=== PATIENT | male | born 1955 | race Caucasian/White ===

== ENCOUNTER 2024-12-27 23:43 | Emergency (ER) | payer OTHER ==
--- OUTSIDE RECORDS SUMMARY | 2024-12-27 23:47 | XMS REPORT | Continuity of Care Document ---
Author Name Unknown Address [address] [facility] [place] [address] [facility] Address [address] [facility] [address] [place] [address] Care Team Providers Care Audio Production Instructor Name Role Phone David Rain Primary Care Physician [phone] Carla Rain Attending Clinician Unavailable Brady Camargo Attending Clinician UnavailRuby العراقي MD Attending Clinician [phone] EZ COLÓN Attending Clinician Unavailable LASHAWN SCOTT Attending Clinician Unavailab Martine Bates LCSW Attending Clinician Unavail able Lesvia Attending Clinician Unavail able STEVE Attending Clinician Unavailable Physician, No Primary or Family Admitting Clinic selina Unavailable Lesvia Admitting Clinician Unavail able STEVE Admitting Clinician Unavailable Payers Payer Name Policy Type Policy Number Effective Date Expirati on Date Source AETNA MEDICARE PPO [id number] 2022 00:00:00 AETNA MEDICARE PPO 53 [id number] [facility] AETNA 53 [id number] 2002 00:00:00 [facility] AETNA (MEDICARE REPLACEMENT PPO) [id number] 2022 00:00:00 AETNA 53 [id number] [facility] Problems Condition Name Condition Details Condition Category Status Onset Date Resolution Date Last Treatment Date Treating Clinician Comments Source Degenerati on of cervical interverte bral disc Degenerati on of Cervical Interverte bral Disc Problem Active 11-09 00:00: 00 [facility] 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 Cervical Spondylosi s without Myelopathy Problem Active 11-09 00:00: 00 [facility] Lumbar spondylosi s Lumbar Spondylosi s Problem Active 10-20 00:00: 00 [facility] Spondyloli sthesis Spondyloli sthesis Problem Active 2019-08 00:00: 00 [facility] Degenerati on of lumbar interverte bral disc Degenerati on of Lumbar Interverte bral Disc Problem Active 2017-08 00:00: 00 [facility] Lumbar disc prolapse with radiculopa thy Lumbar Disc Prolapse with Radiculopa thy Problem Active 2017-08 00:00: 00 [facility] [id number] Elevated PSA Problem [facility] [id number] Family history of prostate cancer Problem [facility] Allergies, Adverse Reactions, Alerts Allergy Name Allergy Type Status Severity Reaction(s) Onset Date Inactive Date Treating Clinician Comments Source No Known Allergie s DA Active U 02-17 00:00: 00 [facility] No Known Allergie s DA Active U 02-17 00:00: 00 [facility] No Known Allergie s DA Active U 02-16 00:00: 00 [facility] No Known Allergie s DA Active U 2017-08 00:00: 00 [facility] Social History Social Habit Start Date Stop Date Quantity Comments Source History of tobacco use Snuff User [facility] Sexual orientation [facility] Alcohol intake 2023-02-27 00:00:00 2023-02-27 00:00:00 .29 /d [facility] Tobacco use and exposure 2023-02-21 00:00:00 2023-02-21 00:00:00 User of smokeless tobacco [facility] History of Social function 2023-02-19 00:00:00 2023-02-19 00:00:00 [facility] Exposure to SARS-CoV-2 (event) 2022 00:00:00 2022-11-19 11:51:00 Not sure [facility] Sex Assigned At 1955 00:00:00 1955 00:00:00 [facility] Smoking Status Start Date Stop Date Source Never smoked tobacco [facility] Tobacco smoking consumption unknown [facility] Medications Ordered Medication Name Filled Medication Name Start Date Stop Date Current Medication? Ordering Clinician Indication Dosage Frequency Signature (SIG) Comments Components Source hydrALAZINE (Apresoline ) 50 MG tablet 02-21 09:07: 00 Yes 50mg Q.5D Take 50 mg by mouth in the morning and 50 mg before bedtime. [facility] lisinopril 30 MG tablet 02-19 14:36: 44 Yes 30mg Q.5D Take 30 mg by mouth in the morning and 30 mg before bedtime. [facility] rosuvastati n (Crestor) 10 MG tablet 02-19 14:36: 44 Yes 10mg QD Take 10 mg by mouth 1 (one) time each day. [facility] amLODIPine (Norvasc) 10 MG tablet - 00:00: 00 Yes [facility] CEFAZOLIN SODIUM 500 MG CEFAZOLIN SODIUM 500 MG 2- 00:00: 00 No 1g [facility] CEFAZOLIN SODIUM 500 MG CEFAZOLIN SODIUM 500 MG 2- 00:00: 00 No 1g [facility] CEFAZOLIN SODIUM 500 MG CEFAZOLIN SODIUM 500 MG 2- 00:00: 00 No 1g [facility] gabapentin 300 mg capsule gabapentin 300 mg capsule 09-20 00:00: 00 No gabapentin 300 mg capsule [facility] ibuprofen 200 mg capsule ibuprofen 200 mg capsule 2017-08 00:00: 00 No ibuprofen 200 mg capsule [facility] lisinopril 20 mg tablet lisinopril 20 mg tablet 2017-08 00:00: 00 No lisinopril 20 mg tablet [facility] Lisinopril 30 MG Lisinopril 30 MG No 1{table t} QD Lisinopril 30 MG Crestor 10 MG Crestor 10 MG No 1{table t} QD Crestor 10 MG hydrALAZINE HCl 50 MG hydrALAZINE HCl 50 MG No 1{table t_with_ food} BID hydrALAZIN E HCl 50 MG Lisinopril 30 MG Lisinopril 30 MG No 1{table t} QD Lisinopril 30 MG Crestor 10 MG Crestor 10 MG No 1{table t} QD Crestor 10 MG hydrALAZINE HCl 50 MG hydrALAZINE HCl 50 MG No 1{table t_with_ food} BID hydrALAZIN E HCl 50 MG Lisinopril 30 MG Lisinopril 30 MG No 1{table t} QD Lisinopril 30 MG Crestor 10 MG Crestor 10 MG No 1{table t} QD Crestor 10 MG hydrALAZINE HCl 50 MG hydrALAZINE HCl 50 MG No 1{table t_with_ food} BID hydrALAZIN E HCl 50 MG Crestor 10 MG Crestor 10 MG No 1{table t} QD Crestor 10 MG hydrALAZINE HCl 50 MG hydrALAZINE HCl 50 MG No 1{table t_with_ food} BID hydrALAZIN E HCl 50 MG Lisinopril 30 MG Lisinopril 30 MG No 1{table t} QD Lisinopril 30 MG Lisinopril 30 MG Lisinopril 30 MG No 1{table t} QD Lisinopril 30 MG Crestor 10 MG Crestor 10 MG No 1{table t} QD Crestor 10 MG hydrALAZINE HCl 50 MG hydrALAZINE HCl 50 MG No 1{table t_with_ food} BID hydrALAZIN E HCl 50 MG Lisinopril 30 MG Lisinopril 30 MG No 1{table t} QD Lisinopril 30 MG Crestor 10 MG Crestor 10 MG No 1{table t} QD Crestor 10 MG hydrALAZINE HCl 50 MG hydrALAZINE HCl 50 MG No 1{table t_with_ food} BID hydrALAZIN E HCl 50 MG Vital Signs Vital Name Observation Time Observation Value Comments S ource Systolic blood pressure 2023-02-25 17:25:00 111 mm[Hg] [facility] Diastolic blood pressure 2023-02-25 17:25:00 75 mm[Hg] [facility] Heart rate 2023-02-25 17:25:00 65 /min [facility] Systolic blood pressure 2022-11-19 22:06:00 120 mm[Hg] [facility] Diastolic blood pressure 2022-11-19 22:06:00 75 mm[Hg] [facility] Heart rate 2022-11-19 22:06:00 68 /min [facility] Body height 2022-11-19 22:06:00 [facility]2 [facility] Body weight 2022-11-19 22:06:00 63.504 [facility] BMI 2022-11-19 22:06:00 21.93 kg/m2 [facility] BP Diastolic 2022-10-03 00:00:00 80 mm[Hg] [facility] Height 2022-10-03 00:00:00 67 [in_i] [facility] BMI (Body Mass Index) 2022-10-03 00:00:00 22.7 kg/m2 [facility] BP Systolic 2022-10-03 00:00:00 110 mm[Hg] [facility] Body Weight 2022-10-03 00:00:00 145 [lb_av] [facility] height 2022-09-26 10:30:00 67 [in_i] Commo n [facility] weight 2022-09-26 10:30:00 151.4 [lb_av] Co mmon [facility] temperature 2022-09-26 10:30:00 98.1 [degF] Com mon [facility] bmi 2022-09-26 10:30:00 23.71 kg/m2 Comm on [facility] oximetry 2022-09-26 10:30:00 98 % Commo n [facility] respiratory rate 2022-09-26 10:30:00 18 /min [facility] blood pressure systolic 2022-09-26 10:30:00 140 mm[Hg] [facility] blood pressure diastolic 2022-09-26 10:30:00 89 mm[Hg] [facility] height 2022-06-28 09:15:00 67 [in_i] Commo n [facility] weight 2022-06-28 09:15:00 147.4 [lb_av] Co [facility] temperature 2022-06-28 09:15:00 98.4 [degF] Com [facility] bmi 2022-06-28 09:15:00 23.08 kg/m2 Comm on [facility] oximetry 2022-06-28 09:15:00 96 % Commo n [facility] respiratory rate 2022-06-28 09:15:00 18 /min [facility] blood pressure systolic 2022-06-28 09:15:00 129 mm[Hg] [facility] blood pressure diastolic 2022-06-28 09:15:00 70 mm[Hg] [facility] height 2021-12-27 10:00:00 67 [in_i] Commo n [facility] weight 2021-12-27 10:00:00 149.8 [lb_av] Co [facility] temperature 2021-12-27 10:00:00 98.6 [degF] Com [facility] bmi 2021-12-27 10:00:00 23.46 kg/m2 Comm on [facility] oximetry 2021-12-27 10:00:00 96 % Commo n [facility] respiratory rate 2021-12-27 10:00:00 16 /min Common [facility] blood pressure systolic 2021-12-27 10:00:00 174 mm[Hg] [facility] blood pressure diastolic 2021-12-27 10:00:00 88 mm[Hg] [facility] height 2021-09-20 16:30:00 67 [in_i] Commo n [facility] weight 2021-09-20 16:30:00 145 [lb_av] Comm on [facility] temperature 2021-09-20 16:30:00 97.6 [degF] Com [facility] bmi 2021-09-20 16:30:00 22.71 kg/m2 Comm on [facility] oximetry 2021-09-20 16:30:00 99 % Commo n [facility] respiratory rate 2021-09-20 16:30:00 16 /min [facility] blood pressure systolic 2021-09-20 16:30:00 161 mm[Hg] Common [facility] blood pressure diastolic 2021-09-20 16:30:00 101 mm[Hg] Common [facility] height 2021-08-09 08:40:00 67 [in_i] Commo n [facility] weight 2021-08-09 08:40:00 151.0 [lb_av] Co mmon [facility] temperature 2021-08-09 08:40:00 98.0 [degF] Com mon [facility] bmi 2021-08-09 08:40:00 23.65 kg/m2 Comm on [facility] oximetry 2021-08-09 08:40:00 96 % Commo n [facility] blood pressure systolic 2021-08-09 08:40:00 161 mm[Hg] Common [facility] blood pressure diastolic 2021-08-09 08:40:00 92 mm[Hg] Common [facility] Plan of Care Planned Activity Planned Date Details Comments Source Instructions [facility] Encounters Start Date/Time End Date/Time Encounter Type Admission Type Attending Clinicians Care Facility Care Department Encounter ID Source 2023-02-28 14:06:30 Outpatient [facility] [id number] [facility] 2023-02-13 11:36:07 Outpatient [facility] [id number] [facility] 2022-12-19 09:18:38 Outpatient [facility] [id number] [facility] 2022-11-23 06:28:17 Outpatient [facility] [id number] [facility] 2022-11-22 21:53:25 Outpatient [facility] [id number] [facility] 2022-11-20 11:05:33 Outpatient [facility] [id number] [facility] 2022-11-19 10:52:31 Outpatient [facility] [id number] [facility] 2022-11-16 16:29:00 Outpatient [facility] [id number] [facility] 2022-11-15 10:16:42 Outpatient [facility] [id number] [facility] 2022-09-25 11:50:01 Outpatient Carla Rain [facility] [id number] [facility] 2022-06-26 11:25:03 Outpatient RainCarla [facility] [id number] [facility] 2021-12-19 11:30:03 Outpatient RainCarla [facility] [id number] [facility] 2021-09-20 14:39:55 Outpatient RainCarla [facility] [id number] [facility] 2021-09-20 14:24:58 Outpatient [facility] [id number] [facility] 2020-10-20 10:00:00 Inpatient Brady Pedro [facility] [id number] [facility] 2023-12-09 09:30:00 2023-12-09 10:21:58 Outpatient [facility] [id number] [facility] 2023-05-17 09:00:00 2023-05-17 15:01:45 Office Visit Ruby Dumas [facility]TP [address] [facility] [id number] [id number] [facility] 2023-05-13 09:00:00 2023-05-13 09:00:00 Outpatient [facility] [id number] [facility] 2023-03-18 00:00:00 2023-03-18 00:00:00 (TEL) [facility] [id number] [facility] 2023-02-25 09:00:00 2023-02-25 09:00:00 Telemedici ne EZ COLÓN [facility] [id number]..840.114 [id number] [facility] 2023-02-11 09:00:00 2023-02-11 09:00:00 Outpatient EZ COLÓN [facility] [id number] [facility] 2023-02-06 09:00:00 2023-02-06 09:00:00 Outpatient EZ COLÓN [facility] [id number] [facility] 2022-12-24 14:00:00 2022-12-24 14:00:00 Outpatient GEORGEKAMERONWilbert KTPRADEEPTOSHIACynthia [facility] [id number] [facility] 2022-11-19 17:00:00 2022-11-19 17:19:39 Telemedici ne Ez Colón [facility] 3 [id number]..840.114 [id number] [facility] 2022-11-19 00:00:00 2022-11-19 00:00:00 Patient Outreach Martine Grossman Latonya [facility] [id number] [facility] [id number] [facility] 2022-11-13 00:00:00 2022-11-13 00:00:00 (TEL) [facility] [id number] [facility] 2022-10-19 00:00:00 2022-10-19 00:00:00 Outpatient FOG_Michelle Ferguson AO AO [id number] [facility] 2022-10-03 00:00:00 2022-10-03 00:00:00 Outpatient FOG_Michelle Ferguson AO AO [id number] [facility] 2022-10-03 00:00:00 2022-10-03 00:00:00 Brady Camargo MD: [address] [place] [address] , Ph. [phone] [facility] [place] [facility] [place] [facility] [id number] [facility] 2022-09-26 00:00:00 2022-09-26 00:00:00 OFFICE VISIT ESTAB PT LEVEL 2 [facility] [id number] [facility] 2022-08-13 00:00:00 2022-08-13 00:00:00 Outpatient FOG_Michelle Ferguson AO AO [id number] [facility] 2022-08-13 00:00:00 2022-08-13 00:00:00 Outpatient FOG_Michelle Ferguson AO AO [id number] [facility] 2022-07-12 00:00:00 2022-07-12 00:00:00 Outpatient SCHAUBROECK _L [facility] [id number] [facility] 2022-06-28 00:00:00 2022-06-28 00:00:00 OFFICE VISIT ESTAB PT LEVEL 4 [facility] [id number] [facility] 2022-01-01 10:54:00 2022-01-01 10:54:00 Outpatient SCHAUBROECK _L [facility] [id number] 2021-12-27 00:00:00 2021-12-27 00:00:00 OFFICE VISIT ESTAB PT LEVEL 2 [facility] [id number] [facility] 2021-12-13 00:00:00 2021-12-13 00:00:00 ([place]) Nurse Visit [facility]LMLC [facility] [id number] [facility] 2021-09-20 00:00:00 2021-09-20 00:00:00 OFFICE VISIT EST PT LEVEL 3 [facility] [id number] [facility] 2021-08-09 00:00:00 2021-08-09 00:00:00 OFFICE VISIT NEW PT LEVEL 3 [facility] [id number] [facility] Results Test Description Test Time Test Comments Results Resul t Comments Source - XR FLUORO FOR SPINE INJ 2020-10-20 20:13:00 [facility] : 1955 Sex: M Patient Name: BRADY MEMBRENO Unit No: [id number] EXAMS: CPT CODE: [id number] XR FLUORO FOR SPINE INJ 71803 LUMBAR FACET INJECTION DIAGNOSTIC REFERRAL PHYSICIAN: None PREOPERATIVE DIAGNOSIS: Lumbar spondylosis without myelopathy or radiculopathy POSTOPERATIVE DIAGNOSIS: Lumbar spondylosis without myelopathy or radiculopathy PROCEDURE PERFORMED: Fluoroscopically guided needle localization of the bilateral L4-5 facets with arthrograms and diagnostic injection of local anesthetic and steroid. FINDINGS: The bilateral L4-5 facet showed marked capsular degeneration and mild joint hypertrophy. Provocation with injection was negative. Aspiration was positive bilaterally for 0.2-0.3 mL of clear serous fluid. Anesthetic response was positive with the patient noting complete relief of his low back pain. Preinjection VAS 7/10. Postinjection VAS 0/10. Steroid response pending follow-up. ESTIMATED BLOOD LOSS: Minimal ANESTHESIA: TIVA COMPLICATIONS: None DETAILS OF PROCEDURE: After obtaining stable vital signs, informed consent and IV access patient was taken to the fluoroscopy suite where the patient was placed in a prone position with all extremities padded and appropriate monitors placed. The patient was sterilely prepped prepped and draped over the lumbosacral spine. Using fluoroscopic visualization, the insertion sites were marked for a paravertebral approach to each joint. Using standard technique, a 26 -gauge needle was inserted into each joint capsule without paresthesias. Bilaterally, aspiration was positive for clear serous fluid. Isovue-300 contrast 0.2 mL was injected to produce each arthrogram. There were no signs of intravascular or intrathecal uptake. Bupivicaine 0.75% 0.5 mL with Lidocaine 4% 0.25 ml and triamcinolone 16 mg was then injected incrementally into each joint. There were no signs of intravascular or intrathecal uptake. The patient's vital signs remained stable. All needles were removed and the patient was taken to the PACU in good condition. Image: Image 1 Image: Image 2 at 2013 Reported and signed by: Brady Camargo M.D. [facility] NAME: SUNDAYBRADY [address] [facility] PHYS: Brady Florez MD [place], [place] [address] : 1955 AGE: 64 SEX: M LOC: YJuventinoMELVIN PHONE #: [phone] EXAM DATE: 10/20/2020 STATUS: [facility] FAX #: [phone] RAD #: D/C DT PAGE 1 Signed Report (CONTINUED) Patient Name: BRADY MEMBRENO Unit No: [id number] EXAMS: CPT CODE: [id number] XR FLUORO FOR SPINE INJ 22099 (Continued) CC: Technologist: Kelsie Caldera(R) Transcribed D/ (2012) [facility] [place] NAME: BRADY MEMBRENO [address] [facility] PHYS: Brady Florez MD [place] [address] : 1955 AGE: 64 SEX: M LOC: Y.MELVIN PHONE #: [phone] EXAM DATE: 10/20/2020 STATUS: [facility] FAX #: [phone] RAD #: D/C DT PAGE 2 Signed Report Patient Name: BRADY MEMBRENO Unit No: [id number] EXAMS: CPT CODE: [id number] XR FLUORO FOR SPINE INJ 68738 (Continued) Orig Print D/T: S: 10/20/2020 (2015) [facility] NAME: BRADY MEMBRENO [address] [facility] PHYS: Brady Florez MD [place] [address] : 1955 AGE: 64 SEX: M LOC: Y.MELVIN PHONE #: [phone] EXAM DATE: 10/20/2020 STATUS: [facility] FAX #: [phone] RAD #: D/C DT PAGE 3 Signed Report - XR FLUORO FOR SPINE INJ 2019-02-17 13:17:00 Patient Name: BRADY MEMBRENO Unit No: [id number] EXAMS: CPT CODE: [id number] XR FLUORO FOR SPINE INJ 74129 LUMBAR TRANSFORAMINAL INJECTION REFERRING PHYSICIAN: PREOPERATIVE DIAGNOSIS: Degenerative Lumbar Disc Disease. POSTOPERATIVE DIAGNOSIS: Bilateral lumbar radiculopathy PROCEDURES PERFORMED 1. Fluoroscopically guided needle localization of the bilateral L4, bilateral L5, bilateral S1 spinal nerve/nerves with transforaminal epidural steroid injection/injections. 2. Transforaminal epidurogram/epidurogram s at bilateral L4, bilateral L5, bilateral S1. FINDINGS: Poor filling all. Concordant provocation bilateral L5 hips. Pain relief-100%. ANTIBIOTIC: Cefazolin ESTIMATED BLOOD LOSS: Minimal ANESTHESIA: (TIVA )Total intravenous anesthetic (patient intolerant to sedatives and hypnotics) COMPLICATIONS: None DETAILS OF PROCEDURE: After obtaining stable vital signs, informed consent and IV access, with no known contraindications to proceeding, the patient was taken to the fluoroscopy suite and placed in a prone position with all extremities padded and appropriate monitors placed. A sterile prep and drape was performed over the lumbosacral spine. Using fluoroscopic visualization at each level the insertion site was marked for a paravertebral approach to the foramen. Using standard technique, a 25 gauge needle was advanced to the base of the pedicle. In AP view, final positioning was obtained outside the 6 on the clock position on the pedicle. Then, 1 ml of Isovue-300 contrast was injected to produce the epidurograms. No paresthesias were elicited with needle insertion or injection and there were no signs of intravascular or intrathecal uptake. Then, with 1 ml of 4% lidocaine and 10 mg of triamcinolone was injected incrementally with frequent negative aspirations. There were no signs of intravascular or intrathecal uptake. Each subsequent level was done using the same technique and medications. The patient's vital signs remained stable. The patient was taken to the PACU in good condition. at 1317 Reported and signed by: Reginaldo Chua M.D. [facility] NAME: BRADY MEMBRENO [address] [facility] PHYS: DOCUD - Reginaldo Chua MD [place], [place] [address] : 1955 AGE: 63 SEX: M LOC: SHANNA PHONE #: [phone] EXAM DATE: 02/17/2019 STATUS: [facility] FAX #: [phone] RAD #: D/C DT PAGE 1 Signed Report (CONTINUED) Patient Name: BRADY MEMBRENO Unit No: [id number] EXAMS: CPT CODE: [id number] XR FLUORO FOR SPINE INJ 96133 (Continued) CC: Reginaldo Chua MD Technologist: RUSSEL SLOAN RT(R) Transcribed D/ (1317) tJUAND [facility] NAME: BRADY MEMBRENO [address] [facility] PHYS: Reginaldo Jimenez MD [place], [place] [address] : 1955 AGE: 63 SEX: M LOC: SHANNA PHONE #: [phone] EXAM DATE: 02/17/2019 STATUS: [facility] FAX #: [phone] RAD #: D/C DT PAGE 2 Signed Report Patient Name: BRADY MEMBRENO Unit No: [id number] EXAMS: CPT CODE: [id number] XR FLUORO FOR SPINE INJ 39408 (Continued) Orig Print D/T: S: 02/17/2019 (1320) [facility] NAME: BRADY MEMBRENO [address] [facility] PHYS: Reginaldo Jimenez MD [place], [place] [address] : 1955 AGE: 63 SEX: M LOC: SHANNA PHONE #: [phone] EXAM DATE: 02/17/2019 STATUS: [facility] FAX #: [phone] RAD #: D/C DT PAGE 3 Signed Report
[2024-12-28] MEDS ORDERED: dexAMETHasone 10 MG/ML VIAL ONE (00:07)
[2024-12-28] MEDS ORDERED: METOCLOPRAMIDE 10 MG/2mL INJ ONE (00:07)
[2024-12-28] MEDS ORDERED: DIPHENHYDRAMINE 50 MG/ML VIAL ONE (00:07)
[2024-12-28] MEDS ORDERED: NA CHLORIDE 0.9% 1,000 ML ONE (00:08)
--- NOTE | 2024-12-28 01:09 | RAD REPORT ---
EXAM: CT Head Without Intravenous Contrast CLINICAL HISTORY: The patient is 69 years old and is Male; HEADACHE TECHNIQUE: Axial computed tomography images of the head/brain without intravenous contrast. Sagit padmini and coronal reformatted images were created and reviewed. This CT exam was performed using one or more of the following dose reduction techniques: automated exposure control, adjustment of t he mA and/or kV according to patient size, and/or use of iterative reconstruction technique. COMPARISON: No relevant prior studies available. FINDINGS: Brain: Mild nonspecific white matter changes likely related to chronic microvascular ischemic dis ease. No hemorrhage. Ventricles: Unremarkable. No ventriculomegaly. Bones/joints: Unremarkable. No acute fracture. Soft tissues: Unremarkable. Sinuses: Unremarkable as visualized. Mastoid air cells: Unremarkable as visualized. No mastoid effusion. IMPRESSION: No acute intracranial abnormality. Electronically signed by: Jose Bartholomew MD 12/28/2024 01:04 AM CDT RP 8 Due to temporary technical issues with the PACS/[employer] reporting system, reports are being santo d by the in-house radiologist without review as a courtesy to ensure prompt reporting the interpreting radiologist is fully responsible for the content of the report. Transcribed Date/Time: 12/28/2024 1:09 AM
--- NOTE | 2024-12-28 01:35 | ER ---
Nurse's Notes [facility] Name: Jose Palacios Age: 69 yrs Sex: Male : 1955 Arrival Date: 12/27/2024 Time: 23:43 Bed 7 Private MD: Diagnosis: Headache Presentation: 12/27 23:50 Chief complaint: Patient states: right sided neck pain radiating to right side of face lg3 and right head. onset 1999. Coronavirus screen: Client denies travel out of the [place] in the last 14 days. At this time, the client does not indicate any symptoms associated with coronavirus-19. Ebola Screen: No symptoms or risks identified at this time. Initial Sepsis Screen: Does the patient meet any 2 criteria? No. Patient's initial sepsis screen is negative. Does the patient have a suspected source of infection? No. Patient's initial sepsis screen is negative. Risk Assessment: Do you want to hurt yourself or someone else? Patient reports no desire to harm self or others. Onset of symptoms was December 27, 2024 at 20:00. 23:50 Method Of Arrival: EMS: [facility] lg3 23:50 Acuity: [place] 3 lg3 Triage Assessment: 23:50 General: Appears in no apparent distress. comfortable, Behavior is calm, cooperative. lg3 Pain: Complains of pain in head and neck. EENT: No deficits noted. No signs and/or symptoms were reported regarding the EENT system. Neuro: No deficits noted. Lao Agitation-Sedation Scale (RASS): 0 - Alert and Calm Level of Consciousness is awake, alert, obeys commands, Oriented to person, place, time, situation. Neuro: Retinal Surgeon are equal bilaterally Moves all extremities. Full function Gait is steady, Facial symmetry appears normal, Pupils are PERRLA, Intact Reports headache in right parietal area. Cardiovascular: No deficits noted. Denies chest pain, shortness of breath, Capillary refill < 3 seconds Clubbing of nail beds is absent JVD is absent Patient's skin is warm and dry. Respiratory: No deficits noted. Airway is patent Respiratory effort is even, unlabored, Respiratory pattern is regular, symmetrical. GI: No deficits noted. No signs and/or symptoms were reported involving the gastrointestinal system. : No signs and/or symptoms were reported regarding the genitourinary system. Derm: No deficits noted. No signs and/or symptoms reported regarding the dermatologic system. Skin is intact, is healthy with good turgor, Skin is dry, Skin is normal, Skin temperature is warm. Musculoskeletal: No deficits noted. Circulation, motion, and sensation intact. Range of motion: intact in all extremities. Historical: - Allergies: 12/28 00:23 No Known Allergies; lg3 - Home Meds: 00:23 lisinopril 30 mg Oral tablet 1 tab twice a day [Active]; rosuvastatin 10 mg oral tablet lg3 daily [Active]; amlodipine 10 mg tablet daily [Active]; - PMHx: 00:23 hemorrhagic stroke 2022; Hypertensive disorder; Hypercholesterolemia; spinal stenosis; lg3 aphasia; - PSHx: 00:23 None; lg3 - Immunization history:: Adult Immunizations up to date. - Infectious Disease History:: Denies. - Social history:: Smoking status: Patient denies any tobacco usage or history of. Patient uses alcohol, occasionally. - Family history:: not pertinent. Screenin/04 23:50 [facility] ED Fall Risk Assessment (Adult) History of falling in the last 3 months, lg3 including since admission No falls in past 3 months (0 pts) Confusion or Disorientation No (0 pts) Intoxicated or Sedated No (0 pts) Impaired Gait No (0 pts) Mobility Assist Device Used No (0 pt) Altered Elimination No (0 pt) Score/Fall Risk Level 0 - 2 = Low Risk Oriented to surroundings, Maintained a safe environment, Educated pt \T\ family on fall prevention, incl call for assistance when getting out of bed, Assessed \T\ reinforced patient's understanding of fall precautions. Abuse screen: Denies threats or abuse. Denies injuries from another. Nutritional screening: No deficits noted. Tuberculosis screening: No symptoms or risk factors identified. VAN Screening: Arm Drift: Patient shows no arm weakness. Patient is VAN negative. Visual Disturbance: No visual disturbance noted. Ronda Swallow Protocol Brief Cognitive Screen What is your name? Normal, Where are you right now? Normal, What year is it? Normal. Oral Mechanism Examination Facial Symmetry: Normal, Motion: Normal, Lip Closure: Normal, Oral Mechanism Result: Normal. 3 oz Water Swallow Challenge: Pt able to drink all water without stopping, coughing, choking or throat clearing: Yes. Assessment: 23:50 General: see triage assessment. lg3 12/28 01:47 Reassessment: Patient appears in no apparent distress at this time. Patient and/or vc1 family updated on plan of care and expected duration. Pain level reassessed. Patient is alert, oriented x 3, equal unlabored respirations, skin warm/dry/pink. Patient states feeling better. Patient states symptoms have improved. Vital Signs: 12/27 23:50 BP 144 / 86; Pulse 77; Resp 16 S; Temp 97.8(O); Pulse Ox 100% on R/A; Weight 65.77 kg lg3 (R); Height 5 ft. 7 in. (R); Pain 8/10; 12/28 00:00 BP 146 / 88; Pulse 80; Resp 16; Pulse Ox 98% ; vc1 01:00 BP 144 / 98; Pulse 88; Resp 17; Pulse Ox 100% ; vc1 12/27 23:50 Body Mass Index 22.71 (65.77 kg, 170.18 cm) lg3 12/27 23:50 Pain Scale: Adult lg3 [place] Coma Score: 12/27 23:50 Eye Response: spontaneous(4). Motor Response: obeys commands(6). Verbal Response: lg3 oriented(5). Total: 15. NIH Stroke Scale Scores: 23:50 NIHSS Score: 0 lg3 ED Course: 23:50 Patient arrived in ED. vc1 23:50 Arm band placed on right wrist. lg3 23:50 Patient has correct armband on for positive identification. Placed in gown. Bed in low lg3 position. Call light in reach. Side rails up X 1. Client placed on continuous cardiac and pulse oximetry monitoring. NIBP monitoring applied. Door closed. Noise minimized. Warm blanket given. Pillow given. Family accompanied patient. 23:50 Maintain EMS IV. Dressing intact. Good blood return noted. Site clean \T\ dry. Gauge \T\ lg 3 site: 20 LAC. 12/28 00:00 Jordan Quiroz MD is Attending Physician. rt 00:05 Adrienne Gold RN is Primary Nurse. lg3 00:23 Triage completed. lg3 00:32 CT Head Brain wo Cont In Process Unspecified. EDMS 01:48 Provided Education on: no operating heavy machinery. vc1 01:48 No provider procedures requiring assistance completed. IV discontinued, intact, vc1 bleeding controlled, No redness/swelling at site. Pressure dressing applied. Administered Medications: 00:20 Drug: metoCLOPramide IVP 10 mg IVP once; over 1 to 2 minutes Route: IVP; Site: left lg3 antecubital; 01:46 Follow up: Response: No adverse reaction vc1 00:20 Drug: diphenhydrAMINE IVP 25 mg IVP once Route: IVP; Site: left antecubital; lg3 01:46 Follow up: Response: No adverse reaction vc1 00:20 Drug: NS 0.9% IV 1000 ml IV at 1 bolus Per protocol; to be given as a bolus over 60 lg3 minutes Route: IV; Rate: 1 bolus; Site: left antecubital; 01:49 Follow up: IV Status: Completed infusion; IV Intake: 1000ml vc1 00:20 Drug: Decadron - Dexamethasone IVP 10 mg IVP once Route: IVP; Site: left antecubital; lg3 01:46 Follow up: Response: No adverse reaction vc1 01:46 Drug: Ketorolac IVP 15 mg IVP once Route: IVP; Site: left antecubital; vc1 01:47 Follow up: Response: Medication administered at discharge. vc1 01:46 Drug: Cyclobenzaprine PO 10 mg PO once Route: PO; vc1 01:47 Follow up: Response: Medication administered at discharge. vc1 Medication: 01:48 VIS not applicable for this client. vc1 Intake: 01:49 IV: 1000ml; Total: 1000ml. vc1 Outcome: 01:35 Discharge ordered by MD. rt 01:48 Discharged to home ambulatory, with family, vc1 01:48 Condition: stable 01:48 Discharge instructions given to patient, Instructed on discharge instructions, follow up and referral plans. medication usage, Demonstrated understanding of instructions, follow-up care, medications, Prescriptions given X 1, 01:56 Patient left the ED. vc1 NIH Stroke Scale - NIH Stroke Score Date: 12/27/2024 Time: 23:50 Total Score = 0 10. Dysarthria (speech clarity - read or repeat words) - 0(Normal) 11. Extinction and Inattention (visual/tactile/auditory/spatial/personal) - 0(No abnormality) 1a. Level of Consciousness (LOC) - 0(Alert) 1b. Level of Consciousness (LOC) (Month \T\ Age) - 0(Both) 1c. LOC Commands (Open \T\ Closes Eyes/Home Mortgage Disclosure Act Specialist) - 0(Both) 2. Best Gaze (Lateral Gaze Paresis) - 0(Normal) 3. Visual Field Loss - 0(No visual loss) 4. Facial Palsy - 0(Normal) 5a. Left Arm: Motor (10-second hold) - 0(No drift) 5b. Right Arm: Motor (10-second hold) - 0(No drift) 6a. Left Leg: Motor (5-second hold - always test supine) - 0(No drift) 6b. Right Leg: Motor (5-second hold - always test supine) - 0(No drift) 7. Limb Ataxia (finger/nose \T\ heel/blair - test with eyes open) - 0(Absent) 8. Sensory Loss (pinprick arms/legs/face) - 0(Normal) 9. Best Language: Aphasia (description/naming/reading) - 0(No aphasia) Initials: lg3 Signatures: Dispatcher [employer] EDMS Adrienne Gold RN RN lg3 Negrita Kang RN RN vc1 Jordan Quiroz MD MD rt Corrections: (The following items were deleted from the chart) 00:29 00:23 PSHx: hemmorhagic stroke 2022; lg3 lg3 00:29 00:23 PSHx: hemorrhagic stroke 2022; lg3 lg3 00:32 12/27 23:50 Neuro: Retinal Surgeon are equal bilaterally Moves all extremities. Full lg3 function Gait is steady, Facial symmetry appears normal, Pupils are PERRLA, Intact lg3
--- NOTE | 2024-12-28 01:36 | EDPHYS ---
Physician Documentation [facility] Name: Jose Palacios Age: 69 yrs Sex: Male : 1955 Arrival Date: 12/27/2024 Time: 23:43 Bed 7 Private MD: ED Physician Jordan Quiroz HPI: 12/28 01:46 This 69 yrs old Unknown Male presents to ER via EMS with complaints of headache. rt 01:46 Patient presents to the ED with a pain over the right side of his jaw that radiates to rt the temporal region. States that it started tonight. States that he had similar symptoms when he had an intracranial hemorrhage several years ago. States that the symptoms are not did not seem degrees but they were previously. Denies other acute complaints at this time, symptoms are moderate in severity, aching nature, not otherwise radiating, no other aggravating or alleviating factors.. Historical: - Allergies: 00:23 No Known Allergies; lg3 - Home Meds: 00:23 lisinopril 30 mg Oral tablet 1 tab twice a day [Active]; rosuvastatin 10 mg oral tablet lg3 daily [Active]; amlodipine 10 mg tablet daily [Active]; - PMHx: 00:23 hemorrhagic stroke 2022; Hypertensive disorder; Hypercholesterolemia; spinal stenosis; lg3 aphasia; - PSHx: 00:23 None; lg3 - Immunization history:: Adult Immunizations up to date. - Infectious Disease History:: Denies. - Social history:: Smoking status: Patient denies any tobacco usage or history of. Patient uses alcohol, occasionally. - Family history:: not pertinent. ROS: 01:46 Constitutional: Negative for fever, chills, and weight loss, Cardiovascular: Negative rt for chest pain, palpitations, and edema, Respiratory: Negative for shortness of breath, cough, wheezing, and pleuritic chest pain, Abdomen/GI: Negative for abdominal pain, nausea, vomiting, diarrhea, and constipation, MS/Extremity: Negative for injury and deformity, Skin: Negative for injury, rash, and discoloration, Neuro: Negative for headache, weakness, numbness, tingling, and seizure, :46 Neuro: Positive for headache, Negative for loss of consciousness, Exam: :46 Constitutional: This is a well developed, well nourished patient who is awake, alert, rt and in no acute distress. Head/Face: Normocephalic, atraumatic. Chest/axilla: Normal chest wall appearance and motion. Nontender with no deformity. No lesions are appreciated. Cardiovascular: Regular rate and rhythm with a normal S1 and S2. No gallops, murmurs, or rubs. Normal PMI, no JVD. No pulse deficits. Respiratory: Lungs have equal breath sounds bilaterally, clear to auscultation and percussion. No rales, rhonchi or wheezes noted. No increased work of breathing, no retractions or nasal flaring. Abdomen/GI: Soft, non-tender, with normal bowel sounds. No distension or tympany. No guarding or rebound. No evidence of tenderness throughout. Skin: Warm, dry with normal turgor. Normal color with no rashes, no lesions, and no evidence of cellulitis. MS/ Extremity: Pulses equal, no cyanosis. Neurovascular intact. Full, normal range of motion. Neuro: Awake and alert, GCS 15, oriented to person, place, time, and situation. Cranial nerves II-XII grossly intact. Motor strength 5/5 in all extremities. Sensory grossly intact. Cerebellar exam normal. Normal gait. 01:46 Neuro: Speech normal, cranial nerves II through XII intact, strength and sensation intact in upper and lower extremities, no ataxia on [id number], intention tremor noted, Vital Signs: 12/27 23:50 BP 144 / 86; Pulse 77; Resp 16 S; Temp 97.8(O); Pulse Ox 100% on R/A; Weight 65.77 kg lg3 (R); Height 5 ft. 7 in. (R); Pain 8/10; 12/28 00:00 BP 146 / 88; Pulse 80; Resp 16; Pulse Ox 98% ; vc1 01:00 BP 144 / 98; Pulse 88; Resp 17; Pulse Ox 100% ; vc1 12/27 23:50 Body Mass Index 22.71 (65.77 kg, 170.18 cm) lg3 12/27 23:50 Pain Scale: Adult lg3 NIH Stroke Scale Scores: 12/27 23:50 NIHSS Score: 0 lg3 [place] Coma Score: 23:50 Eye Response: spontaneous(4). Motor Response: obeys commands(6). Verbal Response: lg3 oriented(5). Total: 15. MDM: 12/28 00:00 Medical Screening Exam initiated rt 01:46 Differential Diagnosis Intracranial hemorrhage, TMJ, musculoskeletal pain, benign rt headache. Data reviewed: vital signs, nurses notes, radiologic studies. I considered the following discharge prescriptions or medication management in the emergency department Medications were administered in the Emergency Department. See MAR. Independent interpretation of the following test(s) in the Emergency Department CT Scan: My interpretation is No intracranial hemorrhage seen on my interpretation of CT scan images. Care significantly affected by the following chronic conditions: Hemorrhagic stroke. Counseling: I had a detailed discussion with the patient and/or guardian regarding the historical points, exam findings, and any diagnostic results supporting the discharge/admit diagnosis, radiology results, the need for outpatient follow up, to return to the emergency department if symptoms worsen or persist or if there are any questions or concerns that arise at home. Response to treatment: the patient's symptoms have markedly improved after treatment. 12/28 00:04 Order name: CT Head Brain wo Cont rt Administered Medications: 00:20 Drug: metoCLOPramide IVP 10 mg IVP once; over 1 to 2 minutes Route: IVP; Site: left lg3 antecubital; 01:46 Follow up: Response: No adverse reaction vc1 00:20 Drug: diphenhydrAMINE IVP 25 mg IVP once Route: IVP; Site: left antecubital; lg3 01:46 Follow up: Response: No adverse reaction vc1 00:20 Drug: NS 0.9% IV 1000 ml IV at 1 bolus Per protocol; to be given as a bolus over 60 lg3 minutes Route: IV; Rate: 1 bolus; Site: left antecubital; 01:49 Follow up: IV Status: Completed infusion; IV Intake: 1000ml vc1 00:20 Drug: Decadron - Dexamethasone IVP 10 mg IVP once Route: IVP; Site: left antecubital; lg3 01:46 Follow up: Response: No adverse reaction vc1 01:46 Drug: Ketorolac IVP 15 mg IVP once Route: IVP; Site: left antecubital; vc1 01:47 Follow up: Response: Medication administered at discharge. vc1 01:46 Drug: Cyclobenzaprine PO 10 mg PO once Route: PO; vc1 01:47 Follow up: Response: Medication administered at discharge. vc1 Disposition Summary: 12/28/24 01:35 Discharge Ordered Notes: Location: Home rt Problem: new rt Symptoms: have improved rt Condition: Stable rt Diagnosis - Headache rt Followup: rt - With: Private Physician - When: 2 - 3 days - Reason: Discharge Instructions: - Discharge Summary Sheet rt - General Headache Without Cause rt Forms: - Medication Reconciliation Form rt - Antibiotic Education rt - Prescription Opioid Use rt - Patient Portal Instructions rt - Leadership Thank You Letter rt Prescriptions: - Cyclobenzaprine 10 mg Oral tablet - take 1 tablet ORAL route every 8 hours As needed; 15 tablet; Refills: 0, rt Product Selection Permitted NIH Stroke Scale - NIH Stroke Score Date: 12/27/2024 Time: 23:50 Total Score = 0 10. Dysarthria (speech clarity - read or repeat words) - 0(Normal) 11. Extinction and Inattention (visual/tactile/auditory/spatial/personal) - 0(No abnormality) 1a. Level of Consciousness (LOC) - 0(Alert) 1b. Level of Consciousness (LOC) (Month \T\ Age) - 0(Both) 1c. LOC Commands (Open \T\ Closes Eyes/Automobile Assembler) - 0(Both) 2. Best Gaze (Lateral Gaze Paresis) - 0(Normal) 3. Visual Field Loss - 0(No visual loss) 4. Facial Palsy - 0(Normal) 5a. Left Arm: Motor (10-second hold) - 0(No drift) 5b. Right Arm: Motor (10-second hold) - 0(No drift) 6a. Left Leg: Motor (5-second hold - always test supine) - 0(No drift) 6b. Right Leg: Motor (5-second hold - always test supine) - 0(No drift) 7. Limb Ataxia (finger/nose \T\ heel/blair - test with eyes open) - 0(Absent) 8. Sensory Loss (pinprick arms/legs/face) - 0(Normal) 9. Best Language: Aphasia (description/naming/reading) - 0(No aphasia) Initials: lg3 Signatures: Dispatcher [employer] EDAdrienne Greene RN RN lg3 Negrita Kang RN RN vc1 Jordan Quiroz MD MD rt Corrections: (The following items were deleted from the chart) 00:29 00:23 PSHx: hemmorhagic stroke 2022; lg3 lg3 00:29 00:23 PSHx: hemorrhagic stroke 2022; lg3 lg3
[2024-12-28] MEDS ORDERED: CYCLOBENZAPRINE 10 MG TAB ONE (01:37)
[2024-12-28] MEDS ORDERED: KETOROLAC 30 MG/ML INJ ONE (01:37)
[2024-12-28 02:59] VITALS: TEMP 97.8
[2024-12-28 03:03] VITALS: BP 144/98; O2SAT 100
== END 2024-12-28 01:56 | disposition home or self-care (01) ==
LOC: ER 23:43
DX: R51.9 Headache, unspecified (principal); I10 Essential (primary) hypertension; E78.00 Pure hypercholesterolemia, unspecified; Z86.73 Personal history of transient ischemic attack (TIA), and cerebral infarction without residual deficits
CPT/HCPCS: 70450; J2765; J1200; J1100; J7030; 96361; 96374; 96375; 99285